=== PATIENT | female | born 2000 | race African-American/Black ===

== ENCOUNTER 2022-09-19 09:19 | Emergency (ER) | payer MEDICAID ==
[~2022-09-19] VITALS: Ht 167.6 cm; Wt 63.5 kg
[2022-09-19 09:47] VITALS: BP 129/82
--- NOTE | 2022-09-19 09:57 | NUR ---
Patient arrived to ED 8 for c/o abdominal pain since last night and she indicated pain on right side of stomach at bottom that is non-radiating. Patient has sharp pain. Patient has discomfort when urinating. Patient has discomfort having BM. Patient has PMH asthma. She takes albuterol two days ago. at bedside to MSE patient. Will continue to monitor.
--- NOTE | 2022-09-19 10:37 | NUR ---
X-RAY AT BEDSIDE.
[2022-09-19 10:43] LABS: APPEARANCE,URINE CLEAR (CLEAR); BILIRUBIN,URINE NEGATIVE (NEGATIVE); BLOOD, URINE NEGATIVE (NEGATIVE); COLOR,URINE YELLOW (YELLOW); LEUKOCYTE ESTERASE ,URINE NEGATIVE (NEGATIVE); NITRITE, URINE NEGATIVE (NEGATIVE); UGLUCOSE NEGATIVE (NEGATIVE)
--- NOTE | 2022-09-19 10:43 | NUR ---
DR ERAZO AT BEDSIDE.
--- NOTE | 2022-09-19 10:43 | NUR ---
The patient's care was reviewed and supervised by HELEN BUCHANAN RN.
--- NOTE | 2022-09-19 10:43 | NUR ---
Dr. Wang at bedside to talk to patient.
[2022-09-19] MEDS ORDERED: KETOROLAC 30 MG/ML VIAL IVP ONE (10:50)
[2022-09-19] MEDS ORDERED: NACL 0.9% 1,000 ML IV SCH (10:50)
--- NOTE | 2022-09-19 11:02 | NUR ---
patient went to CT
--- NOTE | 2022-09-19 11:02 | NUR ---
Report given to TRAN Garcia for continuity of care. Patient stable.
[2022-09-19 11:06] LABS: BASOPHILS % (AUTO) 0.5 % (0.0-2.0); EOSINOPHILS # (AUTO) 0.3 K/uL (0-0.4); EOSINOPHILS % (AUTO) 4.1 % (0.0-4.0); HEMOGLOBIN 13.6 g/dL (12.0-16.0); LYMPHOCYTES # (AUTO) 1.4 K/uL (2.5-16.5); LYMPHOCYTES % (AUTO) 21.4 % (20.5-51.1); MEAN CORPUSCULAR HEMOGLOBIN 31 pg (27-31); MEAN CORPUSCULAR HGB CONC 33 g/dL (33-37); MEAN CORPUSCULAR VOLUME 93.9 fL (80-94); MONOCYTES # (AUTO) 0.4 K/uL (0.8-1.0); MONOCYTES % (AUTO) 6.3 % (1.7-9.3); NEUTROPHILS # (AUTO) 4.5 K/uL (1.8-7.7); NEUTROPHILS % (AUTO) 67.7 % (42.2-75.2); PLATELET COUNT (AUTO) 263 K/uL (140-450); RED BLOOD CELL COUNT(AUTO) 4.36 MIL/uL (4.20-5.40); RED CELL DISTRIBUTION WIDTH 13.7 % (11.6-13.7); WHITE BLOOD COUNT (AUTO) 6.6 K/uL (4.8-10.8)
--- NOTE | 2022-09-19 11:06 | NUR ---
PT TO CT VIA [facility].
[2022-09-19 11:24] LABS: ALBUMIN 3.7 g/dL (3.4-5.0); ANION GAP 12.5 (8-16); CARBON DIOXIDE 26.5 mmol/L (21-32); CREATININE 0.7 mg/dL (0.6-1.3); TOTAL BILIRUBIN 1.1 mg/dL (0.0-1.0)
[2022-09-19] MEDS ORDERED: IBUP-2213 PO (11:57)
[2022-09-19] MEDS ORDERED: ACET-8905 PO (11:57)
[2022-09-19] MEDS ORDERED: ONDA8TAB87 PO (11:57)
[2022-09-19 12:17] VITALS: BP 122/81
--- NOTE | 2022-09-19 12:18 | NUR ---
Patient discharged with v/s stable. Written and verbal after care instructions given and explained. Patient alert, oriented and verbalized understanding of instructions. Ambulatory with steady gait. All questions addressed prior to discharge. ID band removed. Patient advised to follow up with PMD. Rx of HYDROCODONE/ACETAMINOPHEN, ONDANSETRON HCI, IBUPROFEN given. Opportunity to ask questions provided and answered.
== END 2022-09-19 12:17 | disposition home or self-care (01) ==
LOC: MED 09:19
DX: N83.201 Unspecified ovarian cyst, right side (principal); R11.2 Nausea with vomiting, unspecified; R19.7 Diarrhea, unspecified; J45.909 Unspecified asthma, uncomplicated; F12.90 Cannabis use, unspecified, uncomplicated
CPT/HCPCS: 36415; 74176; 80053; 81003; 81025; 83690; 85025; 96361; 96374; 99285; J1885; J7030